=== PATIENT | female | born 1985 | race Two or more races ===

== ENCOUNTER 2023-10-21 18:07 | Emergency (ER) | payer OTHER ==
[~2023-10-21] VITALS: Ht 177.8 cm; Wt 99.8 kg
[2023-10-21 18:52] VITALS: TEMP 98.4
[2023-10-21] MEDS ORDERED: KETOROLAC TROMETHAMINE 15 MG/ML VIAL ONE (19:55)
[2023-10-21] MEDS ORDERED: LIDOCAINE 5% (PATCH) 1 EA PATCH TP ONE (19:55)
[2023-10-21] MEDS ORDERED: oxyCODONE/APAP (5/325 MG) 1 UDTAB TABLET ONE (19:56)
[2023-10-21] MEDS: oxyCODONE/APAP (5/325 MG) 1 UDTAB TABLET PO ONE (20:02)
[2023-10-21] MEDS: LIDOCAINE 5% (PATCH) 1 EA PATCH TP ONE (20:02)
[2023-10-21] MEDS: KETOROLAC TROMETHAMINE 15 MG/ML VIAL IM ONE (20:02)
[2023-10-21] MEDS ORDERED: ACET-2605 PO (21:41)
[2023-10-21] MEDS ORDERED: HYDR-4209 PO ×2 (23:07→23:12)
[2023-10-21] MEDS: MORPHINE SULFATE INJ 2 MG/ML DISP.SYRIN IM ONE (23:34)
[2023-10-21] MEDS: dexaMETHasone SOD PHOSPHATE 4 MG/ML VIAL IM ONE (23:36)
[2023-10-22 02:42] VITALS: BP 131/73; O2SAT 100
== END 2023-10-22 02:45 | disposition short-term general hospital (02) ==
LOC: ER 18:13
DX: M54.50 Low back pain, unspecified (principal); Z79.899 Other long term (current) drug therapy
CPT/HCPCS: 99285; 96372 ×2; J1100; J2270; J1885